=== PATIENT | female | born 2000 | race Two or more races ===

== ENCOUNTER 2022-05-26 16:06 | Outpatient (CLI) | payer OTHER | END 2022-05-26 17:34 | disposition home or self-care (01) | LOC: PRENATAL 16:06 | PROVIDERS: ATTEND Obstetrics & Gynecology Maternal & Fetal Medicine | DX: O35.9XX0 Maternal care for (suspected) fetal abnormality and damage, unspecified, not applicable or unspecified (principal); O09.219 Supervision of pregnancy with history of pre-term labor, unspecified trimester; Z3A.20 20 weeks gestation of pregnancy ==

== ENCOUNTER 2022-08-19 14:38 | Inpatient (IN) | payer OTHER ==
[~2022-08-19] VITALS: Ht 149.9 cm; Wt 59.9 kg
[~2022-08-19 14:38] MED LIST: PRENATAL TABLE1 EAC1 PO; PROGESTERO50 MG/1 M1 IM
[2022-08-22] MEDS ORDERED: NIFEDIPINE20 MG PO (07:51)
== END 2022-08-22 10:27 | disposition home or self-care (01) | DRG 833 ==
LOC: OBS/DEL 14:38 → LDR 08-20 08:33 → OB/GYN 08-21 16:31
PROVIDERS: ADMIT Obstetrics & Gynecology; ATTEND Obstetrics & Gynecology
PROC: BY4FZZZ Ultrasonography of Third Trimester, Single Fetus (ICD-10-PCS; principal; 2022-08-19)
PROC: BU4CZZZ Ultrasonography of Uterus and Ovaries (ICD-10-PCS; 2022-08-19)
PROC: 4A1HXCZ Monitoring of Products of Conception, Cardiac Rate, External Approach (ICD-10-PCS; 2022-08-20)
DX: O60.03 Preterm labor without delivery, third trimester (principal); Z3A.32 32 weeks gestation of pregnancy; Z20.822 Contact with and (suspected) exposure to COVID-19; O36.8130 Decreased fetal movements, third trimester, not applicable or unspecified; O26.843 Uterine size-date discrepancy, third trimester

== ENCOUNTER 2022-09-01 17:45 | Inpatient (IN) | payer OTHER ==
[~2022-09-01] VITALS: Ht 149.9 cm; Wt 59.0 kg
[~2022-09-01 17:45] MED LIST changes: +NIFEDIPINE20 MG PO
== END 2022-09-05 19:57 | disposition home or self-care (01) | DRG 833 ==
LOC: LDR 17:45 → OB/GYN 09-03 16:56
PROVIDERS: ADMIT Obstetrics & Gynecology; ATTEND Obstetrics & Gynecology
PROC: 4A1HXCZ Monitoring of Products of Conception, Cardiac Rate, External Approach (ICD-10-PCS; principal; 2022-09-01)
PROC: BY4FZZZ Ultrasonography of Third Trimester, Single Fetus (ICD-10-PCS; 2022-09-01)
DX: O60.03 Preterm labor without delivery, third trimester (principal); Z3A.34 34 weeks gestation of pregnancy; Z20.822 Contact with and (suspected) exposure to COVID-19

== ENCOUNTER 2022-09-18 12:39 | Inpatient (IN) | payer OTHER ==
[~2022-09-18] VITALS: Ht 149.9 cm; Wt 59.0 kg
[2022-09-18] MEDS ORDERED: IRON236 MG PO (13:06)
== END 2022-09-21 16:19 | disposition home or self-care (01) | DRG 786 ==
LOC: LDR 12:39 → OB/GYN 17:45
PROVIDERS: ADMIT Obstetrics & Gynecology; ATTEND Obstetrics & Gynecology
PROC: 4A1HXCZ Monitoring of Products of Conception, Cardiac Rate, External Approach (ICD-10-PCS; 2022-09-18)
PROC: 10D00Z1 Extraction of Products of Conception, Low, Open Approach (ICD-10-PCS; principal; 2022-09-18 19:00)
DX: O34.211 Maternal care for low transverse scar from previous cesarean delivery (principal); O60.14X0 Preterm labor third trimester with preterm delivery third trimester, not applicable or unspecified; Z3A.36 36 weeks gestation of pregnancy; Z37.0 Single live birth; Z20.822 Contact with and (suspected) exposure to COVID-19

== ENCOUNTER 2023-12-20 15:59 | Outpatient (CLI) | payer OTHER ==
[~2023-12-20 15:59] MED LIST changes: +IRON236 MG PO
== END 2023-12-20 16:01 | disposition home or self-care (01) ==
LOC: PRENATAL 15:59
PROVIDERS: ATTEND Obstetrics & Gynecology Maternal & Fetal Medicine
DX: O35.3XX0 Maternal care for (suspected) damage to fetus from viral disease in mother, not applicable or unspecified (principal); O44.00 Complete placenta previa NOS or without hemorrhage, unspecified trimester; O60.00 Preterm labor without delivery, unspecified trimester; O34.219 Maternal care for unspecified type scar from previous cesarean delivery; Z3A.20 20 weeks gestation of pregnancy

== ENCOUNTER 2024-03-06 09:11 | Outpatient (CLI) | payer OTHER | END 2024-03-06 09:12 | disposition home or self-care (01) | LOC: PRENATAL 09:11 | PROVIDERS: ATTEND Obstetrics & Gynecology Maternal & Fetal Medicine | DX: O26.849 Uterine size-date discrepancy, unspecified trimester (principal); O36.8199 Decreased fetal movements, unspecified trimester, other fetus; O60.00 Preterm labor without delivery, unspecified trimester; O34.219 Maternal care for unspecified type scar from previous cesarean delivery; Z3A.31 31 weeks gestation of pregnancy ==

== ENCOUNTER 2024-03-07 18:55 | Inpatient (IN) | payer OTHER ==
[~2024-03-07] VITALS: Ht 149.9 cm; Wt 55.8 kg
[2024-03-07 18:21] VITALS: BP 100/57
[2024-03-07] MEDS ORDERED: RINGERS SOLUTION,LACTATED 1,000 ML IV SCH (19:15)
[2024-03-07] MEDS ORDERED: AMPICILLIN SODIUM 2,000 MG VIAL IV ONE (19:15)
[2024-03-07] MEDS ORDERED: TERBUTALINE SULFATE 1 MG/ML AMPUL SUBCUTANEO SCH (19:15)
[2024-03-07] MEDS ORDERED: BETAMETHASONE ACETATE,SOD PHOS 30 MG/5 ML ML IM SCH (19:15)
[2024-03-07 21:48] LABS: HEMATOCRIT 27.8 % (36.0-45.00); HEMOGLOBIN 9.2 g/dL (12.0-15.00); MEAN CELL VOLUME 73.9 fL (80.00-100.00); MEAN CORPUSCULAR HEMOGLOBIN 24.6 pg (27.00-32.0); MEAN CORPUSCULAR HGB CONC 33.2 g/dl (32.0-36.0); PLATELET COUNT 222 K/uL (150-450); RED BLOOD COUNT 3.76 M/uL (4.00-6.00); RED CELL DISTRIBUTION WIDTH 15.2 % (11.5-14.5)
[2024-03-07 21:51] LABS: PH,URINE 6.5 (5.0-8.0); URINE APPEARANCE Clear; URINE BILIRRUBIN Negative (NEGATIVE); URINE BLOOD Negative; URINE COLOR Yellow; URINE GLUCOSE Negative (NEGATIVE); URINE KETONE Trace (NEGATIVE); URINE LEUKOCYTE Small; URINE NITRATE Negative; URINE PROTEIN Trace (NEGATIVE)
[2024-03-07 21:52] LABS: URINE BACTERIA 1418.4 uL (0.0-1933); URINE EPITHELIAL CELLS 76.1 uL (0.0-38.8); URINE RBC 4.5 uL (0.0-20.8); URINE WBC 67.7 uL (0.0-23.2)
[2024-03-07 22:10] LABS: URINE CAST 0.44 uL (0.0-1.40)
[2024-03-07 23:27] VITALS: BP 105/61
[2024-03-08] VITALS (7 sets, daily range): BP systolic 92–106; BP diastolic 56–66; O2SAT 100
[2024-03-08] MEDS ORDERED: AMPICILLIN SODIUM 1,000 MG VIAL IV SCH
[2024-03-08] MEDS ORDERED: SOD FERRIC GLUC COMPLX/SUCROSE 125 MG in 0.9 % SODIUM CHLORIDE 100 ML IV SCH (09:00)
[2024-03-08] MEDS ORDERED: NIFEDIPINE 30 MG TAB.SA.OSM PO SCH (10:15)
[2024-03-08] MEDS ORDERED: NIFEDIPINE 30 MG TAB.SA.OSM PO STA (11:22)
[2024-03-08] MEDS ORDERED: BETAMETHASONE ACETATE,SOD PHOS 30 MG/5 ML ML IM NR (19:15)
[2024-03-09 03:00] VITALS: BP 100/60
[2024-03-09 06:04] VITALS: BP 99/62; O2SAT 100
[2024-03-09] MEDS ORDERED: NIFEDIPINE 30 MG TAB.SA.OSM PO SCH (09:00)
[2024-03-09 10:47] VITALS: BP 109/69
[2024-03-09 15:45] VITALS: BP 104/64
[2024-03-10] VITALS: BP 98/63
[2024-03-10 09:00] VITALS: BP 104/64
[2024-03-10] MEDS ORDERED: FAMOtidine 40 MG TABLET PO SCH (12:00)
[2024-03-10 16:02] VITALS: BP 108/66
[2024-03-11 00:05] VITALS: BP 97/60
[2024-03-11 08:00] VITALS: BP 107/67
[2024-03-11] MEDS ORDERED: FAMOtidine 40 MG TABLET PO SCH (09:00)
[2024-03-11 16:00] VITALS: BP 97/62
[2024-03-12 02:37] VITALS: BP 93/47
[2024-03-12 08:29] VITALS: BP 102/71
[2024-03-12 15:52] VITALS: BP 98/60
[2024-03-13 01:00] VITALS: BP 92/53
[2024-03-13 07:07] LABS: HEMOGLOBIN 9.3 g/dL (12.0-15.00); MEAN CELL VOLUME 76.8 fL (80.00-100.00); MEAN CORPUSCULAR HEMOGLOBIN 24.7 pg (27.00-32.0); MEAN CORPUSCULAR HGB CONC 32.1 g/dl (32.0-36.0); PLATELET COUNT 226 K/uL (150-450); RED BLOOD COUNT 3.78 M/uL (4.00-6.00); RED CELL DISTRIBUTION WIDTH 15.7 % (11.5-14.5)
[2024-03-13 07:54] VITALS: BP 110/74
[2024-03-13 15:36] VITALS: BP 99/60
[2024-03-14] VITALS: BP 96/57
[2024-03-14 09:57] VITALS: BP 107/62
== END 2024-03-14 10:43 | disposition home or self-care (01) | DRG 831 ==
LOC: LDR 18:55 → OB/GYN 03-09 09:11
PROVIDERS: Obstetrics & Gynecology; ADMIT Obstetrics & Gynecology; ATTEND Obstetrics & Gynecology
PROC: 4A1HXCZ Monitoring of Products of Conception, Cardiac Rate, External Approach (ICD-10-PCS; principal; 2024-03-07)
PROC: BY4FZZZ Ultrasonography of Third Trimester, Single Fetus (ICD-10-PCS; 2024-03-08)
PROC: BU4CZZZ Ultrasonography of Uterus and Ovaries (ICD-10-PCS; 2024-03-08)
DX: O26.873 Cervical shortening, third trimester (principal); O60.03 Preterm labor without delivery, third trimester; O26.843 Uterine size-date discrepancy, third trimester; O36.8130 Decreased fetal movements, third trimester, not applicable or unspecified; Z3A.31 31 weeks gestation of pregnancy; Z20.822 Contact with and (suspected) exposure to COVID-19; O99.013 Anemia complicating pregnancy, third trimester; D64.9 Anemia, unspecified

== ENCOUNTER 2024-04-07 19:01 | Outpatient (CLI) | payer OTHER ==
[2024-04-07 18:33] VITALS: BP 105/67
[2024-04-07] MEDS ORDERED: NIFEDIPINE20 MG PO (19:03)
[2024-04-07] MEDS ORDERED: RINGERS SOLUTION,LACTATED 1,000 ML IV SCH (19:15)
[2024-04-07 20:03] LABS: HEMATOCRIT 38.2 % (36.0-45.00); HEMOGLOBIN 12.5 g/dL (12.0-15.00); MEAN CORPUSCULAR HEMOGLOBIN 26.8 pg (27.00-32.0); MEAN CORPUSCULAR HGB CONC 32.7 g/dl (32.0-36.0); PLATELET COUNT 174 K/uL (150-450); RED BLOOD COUNT 4.66 M/uL (4.00-6.00)
[2024-04-07] MEDS ORDERED: BETAMETHASONE ACETATE,SOD PHOS 30 MG/5 ML ML ONE (20:28)
[2024-04-07] MEDS ORDERED: TERBUTALINE SULFATE 1 MG/ML AMPUL ONE (20:28)
[2024-04-07] MEDS ORDERED: BETAMETHASONE ACETATE,SOD PHOS 30 MG/5 ML ML IM ONE (20:30)
[2024-04-07] MEDS ORDERED: TERBUTALINE SULFATE 1 MG/ML AMPUL SUBCUTANEO ONE ×2 (20:30→22:00)
[2024-04-07 21:07] LABS: PH,URINE 5.5 (5.0-8.0); URINE APPEARANCE Cloudy; URINE BILIRRUBIN Small (NEGATIVE); URINE BLOOD Negative; URINE COLOR Dark Yellow; URINE GLUCOSE Negative (NEGATIVE); URINE LEUKOCYTE Negative; URINE NITRATE Negative; URINE PROTEIN 30 (NEGATIVE)
[2024-04-07 21:08] LABS: URINE BACTERIA 17.1 uL (0.0-1933); URINE EPITHELIAL CELLS 27.9 uL (0.0-38.8); URINE RBC 4.7 uL (0.0-20.8)
[2024-04-07 21:29] LABS: URINE CAST 0.29 uL (0.0-1.40); URINE KETONE 80 (NEGATIVE)
[2024-04-07 23:50] VITALS: BP 95/56
[2024-04-08 04:26] VITALS: BP 91/53
[2024-04-08 07:15] VITALS: BP 110/67
[2024-04-08 11:07] VITALS: BP 88/58
[2024-04-08 15:10] VITALS: BP 104/70
[2024-04-08 16:48] VITALS: BP 100/62
== END 2024-04-08 16:48 | disposition home or self-care (01) ==
LOC: OBS/DEL 19:01
PROVIDERS: Obstetrics & Gynecology; ATTEND Obstetrics & Gynecology
DX: O26.893 Other specified pregnancy related conditions, third trimester (principal); Z3A.35 35 weeks gestation of pregnancy; R10.2 Pelvic and perineal pain

== ENCOUNTER 2024-04-21 10:39 | Inpatient (IN) | payer OTHER ==
[~2024-04-21] VITALS: Ht 121.9 cm; Wt 3.2 kg
[2024-04-21 10:31] LABS: HEMATOCRIT 36.9 % (36.0-45.00); HEMOGLOBIN 12.4 g/dL (12.0-15.00); MEAN CELL VOLUME 80.9 fL (80.00-100.00); MEAN CORPUSCULAR HEMOGLOBIN 27.1 pg (27.00-32.0); MEAN CORPUSCULAR HGB CONC 33.5 g/dl (32.0-36.0); PLATELET COUNT 194 K/uL (150-450); RED BLOOD COUNT 4.55 M/uL (4.00-6.00); RED CELL DISTRIBUTION WIDTH 24.7 % (11.5-14.5)
[2024-04-21 10:33] LABS: PH,URINE 6.5 (5.0-8.0); URINE APPEARANCE Cloudy; URINE BILIRRUBIN Negative (NEGATIVE); URINE BLOOD Negative; URINE COLOR Yellow; URINE GLUCOSE Negative (NEGATIVE); URINE KETONE Negative (NEGATIVE); URINE LEUKOCYTE Moderate; URINE NITRATE Negative; URINE PROTEIN Negative (NEGATIVE)
[2024-04-21 10:36] LABS: URINE BACTERIA 1681.6 uL (0.0-1933); URINE EPITHELIAL CELLS 107.3 uL (0.0-38.8); URINE RBC 5.5 uL (0.0-20.8); URINE WBC 114.9 uL (0.0-23.2)
[2024-04-21 10:44] LABS: URINE CAST 0.58 uL (0.0-1.40)
[2024-04-21 11:06] LABS: INR 0.95; PARTIAL THROMBOPLASTIN TIME 27.8 SECONDS (22.0-34.0); PROTHROMBIN TIME 10.4 SECONDS (9.0-11.5)
[2024-04-21 11:19] LABS: ALBUMIN 2.8 gm/dL (3.4-5.0); BILIRUBIN TOTAL 0.46 mg/dL (0.3-1.2); CALCIUM 8.7 mg/dL (8.5-10.1); CREATININE SERUM 0.42 mg/dL (0.55-1.02); GFR 182.38; GLOBULINA 3.8 G/DL (2.4-3.5); POTASSIUM 4.06 mEq/L (3.5-5.1); TOTAL PROTEIN 6.6 gm/dL (6.4-8.2)
[2024-04-28 09:19] VITALS: BP 109/69
[2024-04-28] MEDS ORDERED: CEFAZOLIN SODIUM 1,000 MG VIAL IV ONE (09:45)
[2024-04-28] MEDS ORDERED: RINGERS SOLUTION,LACTATED 1,000 ML IV SCH ×2 (09:45→18:30)
[2024-04-28] MEDS ORDERED: CEFAZOLIN SODIUM 1,000 MG VIAL IV SCH (10:45)
[2024-04-28 11:03] VITALS: BP 116/74
[2024-04-28] MEDS ORDERED: ERYTHROMYCIN BASE OPHT 1GM EACH TUBE OP ONE (14:40)
[2024-04-28] MEDS ORDERED: OXYTOCIN 10 UNITS/ML VIAL ONE (14:40)
[2024-04-28] MEDS ORDERED: MORPHINE SULFATE 4 MG/ML CARTRIDGE IV PRN (17:15)
[2024-04-28] MEDS ORDERED: SIMETHICONE 125 MG CAPSULE PO SCH (18:00)
[2024-04-28] MEDS ORDERED: MORPHINE SULFATE 4 MG/ML VIAL IV ONE ×2 (18:05→18:35)
[2024-04-28] MEDS ORDERED: OXYTOCIN 1,000 ML IV SCH (18:30)
[2024-04-28] MEDS ORDERED: ONDANSETRON HCL 2 MG/ML VIAL IV ONE (18:45)
[2024-04-28 19:20] VITALS: BP 101/66
[2024-04-28 21:14] LABS: HEMATOCRIT 31.3 % (36.0-45.00); HEMOGLOBIN 10.4 g/dL (12.0-15.00); MEAN CORPUSCULAR HEMOGLOBIN 27.6 pg (27.00-32.0); MEAN CORPUSCULAR HGB CONC 33.3 g/dl (32.0-36.0); PLATELET COUNT 168 K/uL (150-450); RED BLOOD COUNT 3.77 M/uL (4.00-6.00); RED CELL DISTRIBUTION WIDTH 24.8 % (11.5-14.5)
[2024-04-29] VITALS: BP 92/61
[2024-04-29 08:19] VITALS: BP 127/70
[2024-04-29] MEDS ORDERED: IBUprofen 800 MG TABLET PO SCH (09:00)
[2024-04-29] MEDS ORDERED: DOCUSATE SODIUM 100MG CAP PO SCH (09:00)
[2024-04-29 14:58] VITALS: BP 108/68
[2024-04-30] VITALS: BP 101/63
[2024-04-30 07:30] VITALS: BP 100/63
[2024-04-30 15:46] VITALS: BP 105/66
[2024-05-01 00:55] VITALS: BP 109/63
[2024-05-01 08:00] VITALS: BP 99/62
== END 2024-05-01 11:28 | disposition home or self-care (01) | DRG 785 ==
LOC: LDR 04-28 09:13 → O/R 04-28 16:04 → OB/GYN 04-28 18:04
PROVIDERS: ADMIT Obstetrics & Gynecology; ATTEND Obstetrics & Gynecology
PROC: 0UB70ZZ Excision of Bilateral Fallopian Tubes, Open Approach (ICD-10-PCS; 2024-04-28)
PROC: 4A1HXCZ Monitoring of Products of Conception, Cardiac Rate, External Approach (ICD-10-PCS; 2024-04-28)
PROC: 10D00Z1 Extraction of Products of Conception, Low, Open Approach (ICD-10-PCS; principal; 2024-04-28 17:00)
DX: O34.211 Maternal care for low transverse scar from previous cesarean delivery (principal); Z30.2 Encounter for sterilization; Z37.0 Single live birth; Z3A.39 39 weeks gestation of pregnancy